=== PATIENT | male | born 1990 | race Caucasian/White ===

== ENCOUNTER 2017-10-11 11:04 | Emergency (ER) | payer MEDICAID ==
[~2017-10-11] VITALS: Ht 170.2 cm; Wt 82.0 kg
[2017-10-11] MEDS ORDERED: KETOROLAC 60MG/2ML VIAL IM ONE (15:00)
[2017-10-11 15:16] VITALS: BP 146/82
== END 2017-10-11 15:29 | disposition home or self-care (01) ==
LOC: ER 11:04
DX: M25.522 Pain in left elbow (principal)
CPT/HCPCS: 96372; 99283; J1885